=== PATIENT | male | born 1950 | race Hispanic/Latino ===

== ENCOUNTER → 2022-01-04 | Outpatient (CLI) | payer MEDICARE ==
[~2022-01-04] MED LIST: BUPIVACAINE HCL 0.5% 10ML MPF VIAL INJ ONE
== END ==
LOC: OR 06:10 → LAB 06:10 → EDSTATUS 07:00
PROVIDERS: ATTEND Plastic Surgery
DX: I96 Gangrene, not elsewhere classified (principal); Z53.8 Procedure and treatment not carried out for other reasons
CPT/HCPCS: J0690